=== PATIENT | female | born 1950 | race Caucasian/White ===

== ENCOUNTER → 2017-01-08 | Outpatient (REF) | payer MEDICARE, OTHER | LOC: M SFHCPLAZ 09:05 | PROVIDERS: ATTEND Nurse Practitioner Adult Health | DX: I10 Essential (primary) hypertension (principal); E11.9 Type 2 diabetes mellitus without complications; E78.00 Pure hypercholesterolemia, unspecified; E55.9 Vitamin D deficiency, unspecified; Z53.8 Procedure and treatment not carried out for other reasons ==

== ENCOUNTER → 2017-01-11 | Outpatient (CLI) | payer MEDICARE, OTHER ==
[2017-01-11 13:04] LABS: ALKALINE PHOSPHATASE 114 U/L (45-117); ALT/SGPT 57 U/L (12-78); ANION GAP 9 MEQ/L (8-16); AST/SGOT 41 U/L (15-37); BILIRUBIN,TOTAL 0.5 MG/DL (0.2-1.0); BLOOD UREA NITROGEN 11 MG/DL (7-18); CALCIUM LEVEL 9.3 MG/DL (8.8-10.2); CARBON DIOXIDE LEVEL 28 MEQ/L (21-32); CHLORIDE LEVEL 103 MEQ/L (98-107); CHOLESTEROL LEVEL 215 MG/DL (<200); CREATININE FOR GFR 0.75 MG/DL (0.55-1.02); GLOMERULAR FILTRATION RATE > 60.0 (>45); GLUCOSE, FASTING 100 MG/DL (80-110); POTASSIUM SERUM 4.5 MEQ/L (3.5-5.1); SODIUM LEVEL 140 MEQ/L (136-145); TRIGLYCERIDES LEVEL 85 MG/DL (<150)
[2017-01-11 13:05] LABS: ALBUMIN 3.7 GM/DL (3.2-5.2); ALBUMIN/GLOBULIN RATIO 1.06 (1.00-1.93); TOTAL PROTEIN 7.2 GM/DL (6.4-8.2)
== END ==
LOC: M WUC 10:11
PROVIDERS: ATTEND Nurse Practitioner Adult Health
DX: E11.9 Type 2 diabetes mellitus without complications (principal); E78.00 Pure hypercholesterolemia, unspecified; I10 Essential (primary) hypertension; E55.9 Vitamin D deficiency, unspecified

== ENCOUNTER → 2017-08-10 | Outpatient (CLI) | payer MEDICARE, OTHER ==
[2017-08-10 18:05] LABS: MEAN CORPUSCULAR HEMOGLOBIN 33.9 pg (27.0-33.0); MEAN CORPUSCULAR HGB CONC 33.3 g/dl (32.0-36.5); MEAN CORPUSCULAR VOLUME 101.8 fl (80.0-96.0); PLATELET COUNT, AUTOMATED 223 10^3/uL (150-450); RED CELL DISTRIBUTION WIDTH 11.6 % (11.5-14.5); WHITE BLOOD COUNT 6.7 10^3/uL (4.0-10.0)
[2017-08-10 18:19] LABS: ALBUMIN 3.4 GM/DL (3.2-5.2); ALBUMIN/GLOBULIN RATIO 0.94 (1.00-1.93); ALKALINE PHOSPHATASE 94 U/L (45-117); ALT/SGPT 39 U/L (12-78); ANION GAP 8 MEQ/L (8-16); AST/SGOT 28 U/L (7-37); BILIRUBIN,TOTAL 0.5 MG/DL (0.2-1.0); BLOOD UREA NITROGEN 15 MG/DL (7-18); CALCIUM LEVEL 8.9 MG/DL (8.8-10.2); CARBON DIOXIDE LEVEL 26 MEQ/L (21-32); CHLORIDE LEVEL 105 MEQ/L (98-107); CHOLESTEROL LEVEL 189 MG/DL (<200); CREATININE FOR GFR 0.65 MG/DL (0.55-1.02); GLOMERULAR FILTRATION RATE > 60.0 (>45); GLUCOSE, FASTING 96 MG/DL (80-110); POTASSIUM SERUM 4.2 MEQ/L (3.5-5.1); SODIUM LEVEL 139 MEQ/L (136-145); TRIGLYCERIDES LEVEL 94 MG/DL (<150)
== END ==
LOC: M WUC 10:30
PROVIDERS: ATTEND Nurse Practitioner Adult Health
DX: Z00.00 Encounter for general adult medical examination without abnormal findings (principal); E11.9 Type 2 diabetes mellitus without complications; I10 Essential (primary) hypertension; E55.9 Vitamin D deficiency, unspecified; E78.00 Pure hypercholesterolemia, unspecified

== ENCOUNTER → 2017-08-30 | Outpatient (CLI) | payer MEDICARE, OTHER ==
--- NOTE | 2017-08-30 09:32 | REPMRS ---
Patient History The patient states she had a clinical breast exam in 05/2017. Patient is postmenopausal and has history of other cancer at age 57. Family history of colorectal cancer in maternal uncle. Benign stereotactic core biopsy of the right breast, 2008. Digital Woman Screen Mammo: August 30, 2017 - Exam #: [id number] Bilateral CC and MLO view(s) were taken. Technologist: Allegra Hernandez, Technologist Prior study comparison: July 13, 2016, digital woman screen mammo performed at [facility]. June 24, 2015, digital woman screen mammo performed at [facility]. January 08, 2014, digital woman screen mammo performed at [facility]. FINDINGS: The breast tissue is almost entirely fat. There has been no change in the appearance of the mammogram from the prior studies. There is no interval development of dominant mass, architectural distortion, or clustered microcalcification typical of malignancy. ASSESSMENT: BI-RADS/ACR category 1 mammogram. Negative. Recommendation Routine screening mammogram of both breasts in 1 year (for women over age 40). This mammogram was interpreted with the aid of an FDA-approved computer-aided dectection system. Electronically Signed By: Chris Patel MD 08/30/17 0932
== END ==
LOC: M WHC 08:25
PROVIDERS: ATTEND Nurse Practitioner Adult Health
DX: Z12.31 Encounter for screening mammogram for malignant neoplasm of breast (principal)

== ENCOUNTER → 2018-05-02 | Outpatient (CLI) | payer MEDICARE, OTHER ==
[2018-05-02 13:51] LABS: ESTIMATED AVERAGE GLUCOSE 105 MG/DL (60-110); HEMOGLOBIN A1c 5.3 %
[2018-05-02 13:55] LABS: ALBUMIN 3.6 GM/DL (3.2-5.2); ALBUMIN/GLOBULIN RATIO 0.95 (1.00-1.93); ALKALINE PHOSPHATASE 96 U/L (45-117); ALT/SGPT 143 U/L (12-78); ANION GAP 9 MEQ/L (8-16); AST/SGOT 185 U/L (7-37); BILIRUBIN,TOTAL 0.5 MG/DL (0.2-1.0); BLOOD UREA NITROGEN 16 MG/DL (7-18); CALCIUM LEVEL 8.8 MG/DL (8.8-10.2); CARBON DIOXIDE LEVEL 27 MEQ/L (21-32); CHLORIDE LEVEL 103 MEQ/L (98-107); CHOLESTEROL LEVEL 176 MG/DL (<200); CHOLESTEROL RISK RATIO 2.022 (<5); CREATININE FOR GFR 0.79 MG/DL (0.55-1.30); GLOMERULAR FILTRATION RATE > 60.0 (>45); GLUCOSE, FASTING 96 MG/DL (70-100); HDL CHOLESTEROL 87 MG/DL (>40); LDL CHOLESTEROL 71.8 MG/DL (<100); NON-HDL-C 89 MG/DL; POTASSIUM SERUM 3.9 MEQ/L (3.5-5.1); SODIUM LEVEL 139 MEQ/L (136-145); TOTAL PROTEIN 7.4 GM/DL (6.4-8.2); TRIGLYCERIDES LEVEL 86 MG/DL (<150)
[2018-05-02 14:05] LABS: MALB URINE SIEMENS 47.4 MG/L; MAU/CREAT RATIO 13.6 MCG/MG (0.0-30.0)
== END ==
LOC: M WUC 09:45
DX: E11.9 Type 2 diabetes mellitus without complications (principal); E78.00 Pure hypercholesterolemia, unspecified
CPT/HCPCS: 80053

== ENCOUNTER → 2018-08-12 | Outpatient (REF) | payer MEDICARE, OTHER ==
[2018-08-12 13:37] LABS: ALBUMIN/GLOBULIN RATIO 1.08 (1.00-1.93); ALKALINE PHOSPHATASE 91 U/L (45-117); ALT/SGPT 36 U/L (12-78); ANION GAP 6 MEQ/L (8-16); AST/SGOT 29 U/L (7-37); BILIRUBIN,TOTAL 0.4 MG/DL (0.2-1.0); BLOOD UREA NITROGEN 13 MG/DL (7-18); CALCIUM LEVEL 9.4 MG/DL (8.8-10.2); CARBON DIOXIDE LEVEL 30 MEQ/L (21-32); CHLORIDE LEVEL 102 MEQ/L (98-107); CREATININE FOR GFR 0.68 MG/DL (0.55-1.30); GLOMERULAR FILTRATION RATE > 60.0 (>45); GLUCOSE, FASTING 96 MG/DL (70-100); POTASSIUM SERUM 4.2 MEQ/L (3.5-5.1); SODIUM LEVEL 138 MEQ/L (136-145); TOTAL PROTEIN 7.7 GM/DL (6.4-8.2)
== END ==
LOC: M SFHCPLAZ 10:59
DX: Z00.00 Encounter for general adult medical examination without abnormal findings (principal); K76.0 Fatty (change of) liver, not elsewhere classified; E55.9 Vitamin D deficiency, unspecified; E66.09 Other obesity due to excess calories; Z68.32 Body mass index [BMI] 32.0-32.9, adult
CPT/HCPCS: 80053

== ENCOUNTER → 2018-09-01 | Outpatient (CLI) | payer MEDICARE, OTHER | LOC: M WHC 09:55 | DX: Z12.31 Encounter for screening mammogram for malignant neoplasm of breast (principal); Z78.0 Asymptomatic menopausal state; Z85.828 Personal history of other malignant neoplasm of skin | CPT/HCPCS: 77067 ==

== ENCOUNTER → 2019-07-24 | Outpatient (CLI) | payer MEDICARE, OTHER ==
[2019-07-24 13:08] LABS: ALBUMIN 3.4 GM/DL (3.2-5.2); ALT/SGPT 41 U/L (12-78); BILIRUBIN,TOTAL 0.7 MG/DL (0.2-1.0); BLOOD UREA NITROGEN 13 MG/DL (7-18); CALCIUM LEVEL 9.2 MG/DL (8.8-10.2); CARBON DIOXIDE LEVEL 30 MEQ/L (21-32); CHLORIDE LEVEL 102 MEQ/L (98-107); CHOLESTEROL LEVEL 146 MG/DL (<200); CHOLESTEROL RISK RATIO 2.317 (<5); CREATININE FOR GFR 0.78 MG/DL (0.55-1.30); GLOMERULAR FILTRATION RATE > 60.0 (>39); GLUCOSE, FASTING 91 MG/DL (70-100); HDL CHOLESTEROL 63 MG/DL (>40); LDL CHOLESTEROL 66 MG/DL (<100); NON-HDL-C 83 MG/DL; POTASSIUM SERUM 4.2 MEQ/L (3.5-5.1); SODIUM LEVEL 138 MEQ/L (136-145); TOTAL PROTEIN 7.1 GM/DL (6.4-8.2); TRIGLYCERIDES LEVEL 86 MG/DL (<150)
[2019-07-24 13:09] LABS: TOTAL 25(OH) VITAMIN D 50.4 NG/ML (30.0-100.0)
[2019-07-24 13:36] LABS: MALB URINE SIEMENS 31.4 MG/L; MAU/CREAT RATIO 15.1 MCG/MG (0.0-30.0)
[2019-07-24 13:41] LABS: HEMOGLOBIN A1c 5.1 %
== END ==
LOC: M WUC 08:46
PROVIDERS: ATTEND Nurse Practitioner Adult Health
DX: K76.0 Fatty (change of) liver, not elsewhere classified (principal); Z00.00 Encounter for general adult medical examination without abnormal findings; E11.9 Type 2 diabetes mellitus without complications; E78.00 Pure hypercholesterolemia, unspecified; Z79.899 Other long term (current) drug therapy

== ENCOUNTER → 2019-09-03 | Outpatient (CLI) | payer MEDICARE, OTHER ==
--- NOTE | 2019-09-03 12:30 | REP ---
BILATERAL MAMMOGRAM WITH 3D TOMOSYNTHESIS: No family history of breast cancer. [facility] of breast cancer 4.1%. COMPARISON: 09/01/2018 as well as other prior exams. Metallic clip is again seen in the lateral right breast from a prior benign stereotactic biopsy. Mild scattered fibroglandular tissue is again seen bilaterally with no evidence of mass or architectural distortion. Tiny calcifications are seen in the upper outer quadrant of the right breast. These should be further evaluated with magnification views. IMPRESSION: BIRADS 0: BI-RADS/ACR category 0 mammogram, Incomplete: Need additional imaging evaluation and/or prior mammograms for comparison. ACR 0 incomplete. Tiny calcifications seen in the upper outer quadrant of the right breast. Recommend magnification views to further evaluate. This mammogram was interpreted with the aid of an FDA-approved computer-aided detection system. A. Negative x-ray reports should not delay biopsy if a dominant or clinically suspicious mass is present. B. Four to eight percent of cancers are not identified by x-ray. C. Adenosis and dense breasts may obscure an underlying neoplasm. The patient states that she or he has not had a clinical breast exam in over a year. The patient letter being requested is M0.
== END ==
LOC: M WHC 10:12
PROVIDERS: ATTEND Nurse Practitioner Adult Health
DX: R92.2 Inconclusive mammogram (principal)

== ENCOUNTER → 2019-09-14 | Outpatient (CLI) | payer MEDICARE, OTHER ==
--- NOTE | 2019-09-14 11:48 | REP ---
DIGITAL DIAGNOSTIC UNILATERAL RIGHT BREAST MAMMOGRAPHY WITH CAD: HISTORY: Screening mammography September 03, 2019 was BI-RADS category 0 because of a grouping of fine microcalcifications in the upper outer quadrant on the right. Comparison is also made with prior mammography from September 01, 2018, August 30, 2017. FINDINGS: Magnified focal spot compression CC, true MLO, and MLO views of the right breast are obtained. A loose grouping of predominantly punctate but polymorphic microcalcifications is confirmed in the upper outer quadrant of the right breast. This is not adjacent to a marker clip from previous stereotactic needle biopsy. Several of these calcifications are elongate. These are not apparent on previous mammography. IMPRESSION: BIRADS 4: BI-RADS/ACR category 4 mammogram. Suspicious Abnormality - biopsy should be considered. BI-RADS category 4 suspicious right breast imaging. Stereotactic needle biopsy recommended for microcalcific grouping upper outer quadrant right breast. This mammogram was interpreted with the aid of an FDA-approved computer-aided detection system. The patient states she had a clinical breast exam in over a year. The patient letter being requested is M#[id number]. Electronically Signed by Crescencio Patel MD 09/14/2019 01:47 P
== END ==
LOC: M RAD 10:52
PROVIDERS: ATTEND Nurse Practitioner Adult Health
DX: R92.2 Inconclusive mammogram (principal)

== ENCOUNTER → 2019-10-09 | Outpatient (CLI) | payer MEDICARE, OTHER ==
[~2019-10-09] MED LIST: ASPI81CH33 PO; AZEL0.05 OD; CALCCAP4 PO; CONT1TAB PO; DRIS50003 PO; LIDOCAINE 1% MDV 20ML VIAL As Ordered ONE; LOSA100T8 PO; LOVA1CAP17 PO; METF-414 PO; NEXI40CA PO; PRAV1TAB39 PO
[2019-10-09 11:10] VITALS: BP 197/97
--- NOTE | 2019-10-09 11:54 | REP ---
DIGITAL DIAGNOSTIC UNILATERAL RIGHT BREAST MAMMOGRAPHY: Two views with CAD: HISTORY: Marker clip placement views. The patient is status post stereotactic needle biopsy for microcalcifications. Comparison mammography September 14, 2019. FINDINGS: The marker clip is seen to be in good position at the level of the microcalcifications. A previously placed marker clip is noted elsewhere in the right upper outer quadrant. IMPRESSION: Marker clip in good position. Electronically Signed by Crescencio Patel MD 10/10/2019 05:13 A
--- NOTE | 2019-10-09 12:44 | REP ---
SPECIMEN RADIOGRAPHY: Right breast. HISTORY: Stereotactic needle biopsy for microcalcifications upper outer quadrant right breast. FINDINGS: Specimen radiography demonstrates microcalcifications from the target grouping in specimen tube #5 and #2. IMPRESSION: There are microcalcifications in the biopsy specimen. Electronically Signed by Crescencio Patel MD 10/10/2019 05:15 A
--- NOTE | 2019-10-10 05:17 | REP ---
STEREOTACTIC RIGHT BREAST BIOPSY The procedure was performed under the direct supervision of Dr. Patel The patient has a history of a loose grouping of predominantly punctate of polymorphic microcalcifications in the upper outer quadrant of the right breast seen on a previous mammogram dated 09/14/2019. The risks and benefits of the procedure were explained to the patient and informed consent was obtained. A annual caudal approach was utilized. The calcifications were localized using stereotactic mammographic guidance. 1% Xylocaine was used as a local anesthetic. An 8 gauge, suction assisted Mammotome needle was inserted and 6 core biopsy samples were obtained. Specimen radiograph demonstrates the presence of calcifications to be within the specimen. A marker clip was placed at the biopsy site. The patient tolerated the procedure well and there were no immediate complications. After the appropriate amount of monitored convalescence, the patient was discharged from the department. Electronically Signed by KIMO Vieira 10/09/2019 06:15 P Electronically Signed by Crescencio Patel MD 10/10/2019 05:08 A
== END ==
LOC: M IRPRO 09:49
PROVIDERS: ATTEND Surgery
DX: D05.11 Intraductal carcinoma in situ of right breast (principal)

== ENCOUNTER → 2019-10-20 | Outpatient (CLI) | payer MEDICARE, OTHER ==
[~2019-10-20] MED LIST changes: -LIDOCAINE 1% MDV 20ML VIAL As Ordered ONE
[2019-10-20 12:56] LABS: HEMATOCRIT 41.1 % (36.0-47.0); HEMOGLOBIN 12.9 g/dl (12.0-15.5); MEAN CORPUSCULAR HEMOGLOBIN 32.6 pg (27.0-33.0); MEAN CORPUSCULAR HGB CONC 31.4 g/dl (32.0-36.5); MEAN CORPUSCULAR VOLUME 103.8 fl (80.0-96.0); PLATELET COUNT, AUTOMATED 221 10^3/uL (150-450); RED BLOOD COUNT 3.96 10^6/uL (4.00-5.40); WHITE BLOOD COUNT 6.7 10^3/uL (4.0-10.0)
[2019-10-20 13:18] LABS: ALBUMIN 3.7 GM/DL (3.2-5.2); ALT/SGPT 42 U/L (12-78); BILIRUBIN,TOTAL 0.5 MG/DL (0.2-1.0); BLOOD UREA NITROGEN 13 MG/DL (7-18); CALCIUM LEVEL 9.2 MG/DL (8.8-10.2); CARBON DIOXIDE LEVEL 31 MEQ/L (21-32); CHLORIDE LEVEL 104 MEQ/L (98-107); CREATININE FOR GFR 0.71 MG/DL (0.55-1.30); GLOMERULAR FILTRATION RATE > 60.0 (>39); GLUCOSE, FASTING 96 MG/DL (70-100); POTASSIUM SERUM 4.6 MEQ/L (3.5-5.1); SODIUM LEVEL 139 MEQ/L (136-145)
== END ==
LOC: M WUC 09:32
PROVIDERS: ATTEND Surgery
DX: D05.11 Intraductal carcinoma in situ of right breast (principal)

== ENCOUNTER → 2019-10-22 | Outpatient (CLI) | payer MEDICARE, OTHER ==
[~2019-10-22] MED LIST changes: +PROHANCE 279.3MG/ML 15ML VIAL (A9576) As Ordered ONE
--- NOTE | 2019-10-22 19:11 | REP ---
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 The patient is status post stereotactic needle biopsy right breast for microcalcifications on October 09, 2019. Technique: Three Candace MRI imaging was performed with a dedicated breast coil. Axial, coronal, and sagittal T1 and T2-weighted scans were obtained with and without fat saturation in the usual fashion. The study includes dynamically acquired post gadolinium enhanced imaging subtraction imaging. Maximal intensity projection and multiplanar re-formation imaging is included as well. The study was interpreted with the aid of [employer], an FDA approved computer-aided detection (CAD) software program, on a dedicated breast MRI work station. The gadolinium enhancement dose is 15 ml of intravenous ProHance. Findings: Breast parenchyma is predominately fat replaced. There is a hydro vilma needle biopsy marker clip in the upper outer quadrant of the right breast from recent biopsy. There is no evidence of visible hematoma. There is a second needle biopsy marker clip artifact in the inferior and lateral quadrant of the right breast from previously performed needle biopsy procedure. There is no evidence of axillary lymphadenopathy or significant breast cystic change on either side. There is only minimal background parenchymal enhancement. There is no abnormal focus of enhancement and washout in either breast. Adjacent to the recently placed hydro vilma needle biopsy and marker, there is a branching pattern of subtle ductal type enhancement which measures 20 mm in greatest dimension. The hide remark device is along the medial edge of this ductal enhancement pattern. There is a tiny nodular focus of subtle enhancement 1.6 cm anterior and slightly lateral to the hydro vilma clip. No other suspicious contrast enhancement pattern is appreciated. Subtraction images show this faint area of ductal enhancement adjacent to the hide remark left in the right breast. Study is otherwise unremarkable. Impression: BIRADS category six known right breast malignancy. No contralateral or distant ipsilateral suspicious focus is seen. There is a subtle ductal pattern of enhancement adjacent to the current biopsy marker clip in the upper outer quadrant on the right. BIRADS 6: BI-RADS/ACR category 6 mammogram. Known Biopsy Proven Malignancy. Electronically Signed by Crescencio Patel MD 10/22/2019 07:44 P
== END ==
LOC: M RAD 16:09
PROVIDERS: ATTEND Surgery
DX: D05.11 Intraductal carcinoma in situ of right breast (principal)
CPT/HCPCS: A9576; C8908

== ENCOUNTER → 2019-11-03 | Outpatient (CLI) | payer MEDICARE, OTHER ==
[~2019-11-03] MED LIST changes: +BUPR50TA PO; +MAGN400C2 PO; -PROHANCE 279.3MG/ML 15ML VIAL (A9576) As Ordered ONE; +ULTR50TA8 PO; +VITA50005 PO
--- NOTE | 2019-11-03 15:07 | REP ---
PA and lateral chest: Comparison is 10/25/2019, 09/02. The lung stiles are clear. The cardiac size is normal. The rocio, mediastinum, and skeletal structures are unremarkable. Impression: Negative PA and lateral chest. There is no interval change. Electronically Signed by Joe Quinn MD 11/03/2019 02:59 P
== END ==
LOC: M WUC 14:29
PROVIDERS: ATTEND Family Medicine
DX: Z01.818 Encounter for other preprocedural examination (principal); D05.11 Intraductal carcinoma in situ of right breast
CPT/HCPCS: 71046; 93005; G0463

== ENCOUNTER 2019-11-10 06:08 | Day surgery (SDC) | payer MEDICARE, OTHER ==
[~2019-11-10] VITALS: Ht 157.5 cm; Wt 78.9 kg
[~2019-11-10 06:08] MED LIST changes: -BUPR50TA PO; +LIDOCAINE 1% MDV 20ML VIAL SQ PRN; +LR 1,000 ML IV ONE; -ULTR50TA8 PO; -VITA50005 PO; +ceFAZolin SOD 2 GM in IV 1 EA IV ONE
[2019-11-10] MEDS ORDERED: BUPIVACAINE HCL 0.25% 30 ML VIAL As Ordered ONE (06:54)
[2019-11-10] MEDS ORDERED: LIDOCAINE 1% SDV INJ 30 ML VIAL As Ordered ONE (06:54)
[2019-11-10] MEDS ORDERED: propofoL 200 MG/20 ML VIAL As Ordered ONE (07:12)
[2019-11-10] MEDS ORDERED: LIDOCAINE 2% INJ 100 MG/5 ML SDV (FOR ANES.) As Ordered ONE (07:12)
[2019-11-10] MEDS ORDERED: ONDANSETRON 4MG/2ML VIAL (J2405) As Ordered ONE (07:13)
[2019-11-10] MEDS ORDERED: dexameTHASONE 4 MG/ML 1ML VIAL (J1100) As Ordered ONE (07:13)
[2019-11-10] MEDS ORDERED: fentaNYL 250 MCG/5 ML INJECTION (J3010) As Ordered ONE (07:14)
[2019-11-10] MEDS ORDERED: MIDAZOLAM INJ 2 MG/2 ML VIAL (J2250) As Ordered ONE (07:14)
[2019-11-10] MEDS ORDERED: HEPARIN SOD (PORCINE) 5000 UNITS/ML VIAL (J1644 PER 1000UNITS) SQ ONE (07:15)
[2019-11-10] MEDS ORDERED: SCOPOLAMINE 1MG TRANSDERMAL PATCH As Ordered ONE (07:30)
[2019-11-10] MEDS ORDERED: SCOPOLAMINE 1MG TRANSDERMAL PATCH TOP ONE (07:45)
[2019-11-10] MEDS ORDERED: KETAMINE HCL 200 MG/20 ML VIAL As Ordered ONE (07:53)
[2019-11-10] MEDS ORDERED: ACETAMINOPHEN 1000MG 100ML IV BTL (OFIRMEV) (J0131 PER 10MG) As Ordered ONE (07:54)
[2019-11-10] MEDS ORDERED: KETOROLAC 60 MG/2 ML VIAL (J1885) As Ordered ONE (07:59)
[2019-11-10] MEDS ORDERED: ePHEDrine SULFATE 25 MG/5 ML(5MG/ML) SYRINGE As Ordered ONE (09:15)
[2019-11-10] MEDS ORDERED: ULTR50TA8 PO (10:32)
--- NOTE | 2019-11-10 10:41 | REP ---
SPECIMEN RADIOGRAPHY RIGHT BREAST. HISTORY: Excisional lumpectomy for microcalcifications and ductal carcinoma in situ. Comparison mammography October 09, 2019. FINDINGS: A Kopans needle wire localizer device seen centrally in the specimen immediately adjacent to a HydroMARK needle biopsy marker clip. Along what is described as the posterior margin of the specimen, there are microcalcifications associated with the originally biopsied microcalcific grouping. These extend near the lateral margin of the specimen. Findings were discussed by telephone with the attending surgeon in the operating room. Electronically Signed by Crescencio Patel MD 11/10/2019 07:56 P
[2019-11-10] MEDS ORDERED: ONDANSETRON 4MG/2ML VIAL (J2405) IV PRN (10:45)
[2019-11-10] MEDS ORDERED: LR 1,000 ML IV SCH (10:45)
[2019-11-10] MEDS ORDERED: fentaNYL 100 MCG/2 ML INJECTION (J3010) IV PRN (10:45)
[2019-11-10] MEDS ORDERED: oxyCODONE 5MG TAB PO PRN (10:45)
[2019-11-10] MEDS ORDERED: BUPR50TA PO (11:41)
[2019-11-10 11:50] VITALS: BP 182/77
--- NOTE | 2019-11-10 12:06 | REP ---
Ultrasound guidance: History: Right breast ductal carcinoma in situ. Findings: Sonographic guidance is provided to Dr. Mcclelland who performed ultrasound-guided needle localization procedure. Electronically Signed by Crescencio Patel MD 11/10/2019 07:58 P
--- NOTE | 2019-11-10 20:39 | ROOPDOC ---
[facility] Report Of Operation Report of Operation DATE OF PROCEDURE: 11/10/19 PREPROCEDURE DIAGNOSES: right breast DCIS POSTPROCEDURE DIAGNOSES: right breast DCIS PROCEDURE: right breast lumpectomy with intraop guide wire placement SURGEON: Susana Villareal HEATING ELEMENT BUILDER: ANESTHESIA: general ESTIMATED BLOOD LOSS: Approximately 5 mL. COMPLICATIONS: none REMARKS: wire, clip and calcifications seen on the X ray of the specimen DESCRIPTION OF PROCEDURE: INDICATIONS: Ms. Whitley is a 69 year old woman who was found to have abnormal calcifications in the right breast on the screening mammogram. She had diagnostic imaging done which confirmed the presence of the calcifications. Right breast stereotactic biopsy was done and pathology came back as ER positive DCIS. Patient underwent MRI of the breast to evaluate extent of the disease which was limited to the area of calcifications. There were no abnormalities found in the left breast. Ms. Whitley opted for breast conservative surgery. Since her disease is clinically limited to the ducts, no sentinel lymph node biopsy was recommended at this t [facility]. She was medically cleared for surgery by her primary care doctor. Risks and possible complications of surgical procedure including bleeding, infection and injury to surrounding structures were explained to the patient and she wished to proceed. Consent was signed. My initials were placed on the operative site (right). Since patient has an active diagnosis of cancer, subcutaneous injection of 5000 units of heparin was done in Preop. DETAILS: Patient was taken to the operating room and placed on the operating room table. A sign in was called stating patients name, date of and the procedure to be done. Preoperative antibiotics were infused. Smooth induction of general anesthesia was done. Patients hands were extended on arm rests. Care was taken not to over extend the arms. Procedure was started with right breast intraop wire localization. Appropriate time out was done and patients name, date of , and the procedure to be done were confirmed. Right breast was cleaned by me. Intraoperative ultrasound was used to confirm location of the Hydromark clip. Location of the clip was marked on the skin as well. 21 G Kopans Breast Lesion Localization Needle was used to place 25 cm wire on the medial aspect of the Hydromark clip. The wire was advanced 1 cm posterior to the clip location. The images were captured confirming adequate placement of the localizing wire. Next, right breast was prepped and draped in the usual fashion. Second time out was done and patients name, date of , and the procedure to be done were confirmed. Local anesthetic using 1% lidocaine and 0.25 % Marcaine 50/50 mix was injected at the right periareolar area. An incision was made with scalpel number 15 at the superolateral aspect of the areola. The localizing wire was pulled into the incision. Dissection was carried along the medial aspect of the wire until the level of the clip location was identified by the use of intraoperative ultrasound probe. Dissection was carried posteriorly until the tip of the wire was palpated. Lateral dissection was carried along the dermal plane. Lumpectomy specimen was resected and the margins were marked with the surgical inking kit. Specimen was positioned on the grid and placed in [facility]. The image revealed one wire, one clip and calcifications. At this time radiology department was called to aid with evaluation of excised specimen. Dr Patel states that the lumpectomy looks good. Some calcifications were seen close to lateral aspect of the specimen. The specimen was labeled with patients name and right breast lumpectomy and sent to pathology. At this point six additional specimen margins were taken: deep, inferior, superior, medial, lateral and anterior. All new margins, defined as margin farthest away from lumpectomy cavity, were marked with black ink. Each margin was sent as a separate specimen with appropriate labeling. Adequate hemostasis w as assured. Additional local anesthetic was injected into surrounding tissues. Clips were placed to vilma the cavity. space was approximated with 3-0 Vicryl. The dermis was closed with 3-0 Monocryl and skin was closed with 4-0 Monocryl. Steri strips were placed over the incision. Instrument and sponge count was correct. Patient emerged from the anesthesia without any problems. Fluffs were placed over the operative site and patients chest was wrapped snuggly in the ROSALES wrap. Patient tolerated procedure well and was taken to recovery unit in stable condition. SUSANA VILLAREAL DO Nov 10, 2019 20:39
== END 2019-11-10 12:10 | disposition home or self-care (01) ==
LOC: M SDC 06:08
PROVIDERS: ATTEND Surgery
DX: D05.11 Intraductal carcinoma in situ of right breast (principal); K21.9 Gastro-esophageal reflux disease without esophagitis; I10 Essential (primary) hypertension; E11.9 Type 2 diabetes mellitus without complications; E78.5 Hyperlipidemia, unspecified; F41.9 Anxiety disorder, unspecified; K76.0 Fatty (change of) liver, not elsewhere classified; Z79.82 Long term (current) use of aspirin; Z79.84 Long term (current) use of oral hypoglycemic drugs; Z79.899 Other long term (current) drug therapy
CPT/HCPCS: 19125; 76098; 76942; 76998; 88305; 88307; J0131; J0690; J1100; J1644; J2250; J2405; J3010

== ENCOUNTER 2019-11-19 07:08 | Day surgery (SDC) | payer MEDICARE, OTHER ==
[~2019-11-19] VITALS: Ht 157.5 cm; Wt 78.9 kg
[~2019-11-19 07:08] MED LIST changes: +BUPR50TA PO; -LIDOCAINE 1% MDV 20ML VIAL SQ PRN; +ULTR50TA8 PO; +VITA50005 PO
[2019-11-19] MEDS ORDERED: HEPARIN SOD (PORCINE) 5000 UNITS/ML VIAL (J1644 PER 1000UNITS) SQ ONE (08:00)
[2019-11-19] MEDS ORDERED: dexameTHASONE 4 MG/ML 1ML VIAL (J1100) As Ordered ONE (08:24)
[2019-11-19] MEDS ORDERED: KETOROLAC 60 MG/2 ML VIAL (J1885) As Ordered ONE (08:24)
[2019-11-19] MEDS ORDERED: ONDANSETRON 4MG/2ML VIAL (J2405) As Ordered ONE (08:24)
[2019-11-19] MEDS ORDERED: propofoL 200 MG/20 ML VIAL As Ordered ONE (08:24)
[2019-11-19] MEDS ORDERED: LIDOCAINE 2% INJ 100 MG/5 ML SDV (FOR ANES.) As Ordered ONE (08:24)
[2019-11-19] MEDS ORDERED: fentaNYL 100 MCG/2 ML INJECTION (J3010) As Ordered ONE (08:24)
[2019-11-19] MEDS ORDERED: MIDAZOLAM INJ 2 MG/2 ML VIAL (J2250) As Ordered ONE (08:24)
[2019-11-19] MEDS ORDERED: SCOPOLAMINE 1MG TRANSDERMAL PATCH As Ordered ONE (09:18)
[2019-11-19] MEDS ORDERED: SCOPOLAMINE 1MG TRANSDERMAL PATCH TOP ONE (09:30)
[2019-11-19] MEDS ORDERED: BUPIVACAINE HCL 0.25% 30 ML VIAL As Ordered ONE (09:33)
[2019-11-19] MEDS ORDERED: LIDOCAINE 1% SDV INJ 30 ML VIAL As Ordered ONE (09:33)
[2019-11-19] MEDS ORDERED: ACETAMINOPHEN 1000MG 100ML IV BTL (OFIRMEV) (J0131 PER 10MG) As Ordered ONE (10:01)
[2019-11-19] MEDS ORDERED: HYDROmorphone HCL 2 MG/ML 1ML VIAL (J1170) As Ordered ONE (10:07)
[2019-11-19] MEDS ORDERED: ONDANSETRON 4MG/2ML VIAL (J2405) IV PRN (11:30)
[2019-11-19] MEDS ORDERED: PERCOCET 5MG/325MG TAB PO PRN (11:30)
[2019-11-19] MEDS ORDERED: METOCLOPRAMIDE INJ 10MG/2ML VIAL (J2765) IV PRN (11:30)
[2019-11-19] MEDS ORDERED: fentaNYL 100 MCG/2 ML INJECTION (J3010) IV PRN (11:30)
[2019-11-19] MEDS ORDERED: LR 1,000 ML IV SCH (11:30)
[2019-11-19] MEDS ORDERED: BUPR50TA PO (11:40)
--- NOTE | 2019-11-19 13:14 | REP ---
Specimen radiography: Two views. History: No current history is available. Previous biopsies performed right breast. Comparison MRI study October 22, 2019 showed an abnormality in the right breast. Findings: Two specimen radiographs are obtained. There is a metallic clip centrally located within the specimen on these two views. There is one microcalcification visible on the edge of the specimen and one of the views. No other microcalcifications are visible. No soft tissue nodule is seen. Electronically Signed by Crescencio Patel MD 11/19/2019 01:06 P
[2019-11-19 13:15] VITALS: BP 168/80
--- NOTE | 2019-11-20 06:26 | ROOPDOC ---
[facility] Report Of Operation Report of Operation DATE OF PROCEDURE: 11/20/19 PREPROCEDURE DIAGNOSES: Right DCIS POSTPROCEDURE DIAGNOSES: Right DCIS PROCEDURE: right breast lumpectomy with excision of the margins SURGEON: Susana Villareal REPORTER: ANESTHESIA: general ESTIMATED BLOOD LOSS: Approximately 5 mL. COMPLICATIONS: none. REMARKS: one single cals seen in the lateral margin. previously placed cavity marking clips are present in the middle of specimens. DESCRIPTION OF PROCEDURE: INDICATIONS: Ms. Whitley is a 69 year old woman who was found to have abnormal calcifications in the right breast on the screening mammogram. She had diagnostic imaging done which confirmed the presence of the calcifications. Right breast stereotactic biopsy was done and pathology came back as ER positive DCIS. Patient underwent MRI of the breast to evaluate extent of the disease which was limited to the area of calcifications. There were no abnormalities found in the left breast. Ms. Whitley opted for breast conservative surgery. Since her disease is clinically limited to the ducts, no sentinel lymph node biopsy was recommended at this time. She was medically cleared for surgery by her primary care doctor. She underwent Right breast lumpectomy with intraop guide wire placement on 11/10/2019. Six additional margins were taken at the time of surgery beside the lumpectomy. No sentinel lymph nodes were tested as preoperatively patient has a disease limited to DCIS. Final pathology report stated that superior and lateral margins were positive for DCIS. All the additional margins were clear however lateral margin was less than 2 mm. Per ASBrS recommendation all the margins on DCIS without invasive component should be equal or more than 2 mm. I discussed that with the patient and she agreed to proceed with superior and lateral margin resection. Risks and possible complications of surgical procedure including bleeding, infection and injury to surrounding structures were explained to the patient and she wished to proceed. Consent was signed. My initials were placed on the operative site (right). Since patient has an active diagnosis of cancer, subcutaneous injection of 5000 units of heparin was done in Preop. DETAILS: Patient was taken to the operating room and placed on the operating room table. A sign in was called stating patients name, date of and the procedure to be done. Preoperative antibiotics were infused. Smooth induction of general anesthesia was done. Patients hands were extended on arm rests. Care was taken not to over extend the arms. Right breast was prepped and draped in the usual fashion. Appropriate time out was done and patients name, date of , and the procedure to be done were confirmed. Local anesthetic using 1% lidocaine and 0.25 % Marcaine 50/50 mix was injected at the site of previous scar. The incision was opened with the scalpel and seroma was evacuated at this time. Old lumpectomy cavity was evaluated. Lateral margin of the lumpectomy cavity was identified and excised. The excision was carried all the way to dermis. The specimen was called right lateral margin. The true margin was marked with black ink. Next, superior margin was identified and excised. The specimen was called right superior margin. The true margin was marked with black ink. Accu[employer] imaging system was used to take a picture of the specimen to assess for any remaining calcifications. One single calcification was noted in the lateral margin. Previously placed cavity marking clips were seen in the middle of each specimen. Specimens were placed in formaldehyde and sent to pathology for evaluation. Right breast cavity was irrigated thoroughly and hemostasis was assured. New marking clips were placed in the new superior margin. The deep layers were approximated with 3-0 Vicryl stitch to obliterate the space and to decrease possible breast deformity formation. The dermis was closed with 3-0 Monocryl and skin was closed with 4-0 Monocryl. Steri Strips were placed over the incision. All sponge and instrument counts were correct. Patient emerged from the anesthesia without any problems. Fluffs were placed over the operating site and patients chest was wrapped snuggly in the ROSALES wrap. Patient tolerated procedure well and was taken to recovery unit in stable condition. SUSANA VILLAREAL DO Nov 20, 2019 06:26
== END 2019-11-19 13:20 | disposition home or self-care (01) ==
LOC: M SDC 07:08
PROVIDERS: ATTEND Surgery
DX: D05.11 Intraductal carcinoma in situ of right breast (principal); E11.9 Type 2 diabetes mellitus without complications; K21.9 Gastro-esophageal reflux disease without esophagitis; E78.00 Pure hypercholesterolemia, unspecified; I10 Essential (primary) hypertension; E55.9 Vitamin D deficiency, unspecified; Z86.59 Personal history of other mental and behavioral disorders; Z79.899 Other long term (current) drug therapy; Z79.84 Long term (current) use of oral hypoglycemic drugs; Z79.82 Long term (current) use of aspirin
CPT/HCPCS: 19301; 76098; 88305; J0131; J0690; J1100; J1170; J1644; J1885; J2250; J2405; J3010

== ENCOUNTER → 2020-05-26 | Outpatient (CLI) | payer MEDICARE, OTHER ==
[~2020-05-26] MED LIST changes: +BUPR-69 PO; -BUPR50TA PO; +EXEM25TA PO; -LR 1,000 ML IV ONE; +TAMO20TA8 PO; -ceFAZolin SOD 2 GM in IV 1 EA IV ONE
--- NOTE | 2020-06-27 16:57 | REP ---
DIGITAL DIAGNOSTIC UNILATERAL LEFT BREAST MAMMOGRAPHY WITH CAD AND FOCUSED LEFT BREAST SONOGRAPHY HISTORY: Palpable abnormality in the left breast on clinician breast exam. Contralateral diagnosis of breast cancer. COMPARISON: Mammography 09/03/2019. FINDINGS: The skin marker is affixed to the skin at the site of the palpable lump in the left medial breast. Magnified focal spot compression CC, true ML, and MLO views show homogeneous fat replaced breast parenchyma texture in the region of the palpable lump. No neodensity, architectural distortion, worrisome skin change, or microcalcification is seen. SONOGRAPHIC FINDINGS: Scanning of the left breast in the area of the palpable lump at approximately 11 o'clock medially shows homogeneous background echotexture. No cyst, mass, or acoustic shadowing is seen. IMPRESSION: BI-RADS Category 1 negative left breast imaging. Clinical follow-up is advised. BIRADS 1: BI-RADS/ACR category 1 mammogram. Negative mammogram. This mammogram was interpreted with the assistance of an FDA approved computer- aided detection system. Patient letter is M2. MARITZA
== END ==
LOC: M WHC 12:58
PROVIDERS: ATTEND Surgery
DX: R92.2 Inconclusive mammogram (principal)
CPT/HCPCS: 76642; 77065; G0279

== ENCOUNTER → 2020-06-10 | Outpatient (CLI) | payer MEDICARE, OTHER ==
[2020-06-10 14:46] LABS: HEMOGLOBIN A1c 5.3 %
[2020-06-10 15:19] LABS: ALBUMIN 3.6 GM/DL (3.2-5.2); ALT/SGPT 47 U/L (12-78); BILIRUBIN,TOTAL 0.6 MG/DL (0.2-1.0); BLOOD UREA NITROGEN 12 MG/DL (7-18); CALCIUM LEVEL 9.3 MG/DL (8.8-10.2); CARBON DIOXIDE LEVEL 29 MEQ/L (21-32); CHLORIDE LEVEL 103 MEQ/L (98-107); CHOLESTEROL LEVEL 171 MG/DL (<200); CHOLESTEROL RISK RATIO 1.676 (<5); CREATININE FOR GFR 0.66 MG/DL (0.55-1.30); GLOMERULAR FILTRATION RATE > 60.0 (>39); GLUCOSE, FASTING 87 MG/DL (70-100); HDL CHOLESTEROL 102 MG/DL (>40); LDL CHOLESTEROL 53 MG/DL (<100); NON-HDL-C 69 MG/DL; POTASSIUM SERUM 4.2 MEQ/L (3.5-5.1); SODIUM LEVEL 138 MEQ/L (136-145); TOTAL PROTEIN 7.3 GM/DL (6.4-8.2); TRIGLYCERIDES LEVEL 80 MG/DL (<150)
== END ==
LOC: M WUC 09:24
PROVIDERS: ATTEND Physician Assistant
DX: E11.9 Type 2 diabetes mellitus without complications (principal); E78.2 Mixed hyperlipidemia; I10 Essential (primary) hypertension; E55.9 Vitamin D deficiency, unspecified; Z79.899 Other long term (current) drug therapy

== ENCOUNTER → 2020-09-05 | Outpatient (CLI) | payer MEDICARE, OTHER ==
--- NOTE | 2020-09-05 09:45 | REPMRS ---
Patient History Family history of colorectal cancer in maternal uncle. Radio exam Breast Specimen of the right breast, November 19, 2019. Malignant radio exam breast specimen of the right breast, November 10, 2019. Malignant radio exam breast specimen of the right breast, October 09, 2019. Stereotatic Loc for ea Lesion of the right breast, October 09, 2019. Benign stereotactic core biopsy of the right breast, 2008. Taking tamoxifen for 8 months. Diagnostic Bilateral Mammo: September 05, 2020 - Exam #: [id number] Bilateral CC and MLO view(s) were taken. Technologist: Sara Davis, Technologist Prior study comparison: May 26, 2020, left breast diagnostic unilateral mammo performed at [facility]. September 14, 2019, right breast digital mammo diagnostic unilateral, performed at [facility]. September 03, 2019, bilateral digital woman screen mammo performed at [facility]. September 01, 2018, bilateral digital woman screen mammo performed at [facility]. FINDINGS: There are scattered fibroglandular densities. The Volpara volumetric breast density category is:B. The patient is status post excisional biopsy for ductal carcinoma in situ April of 2020. This is the 1st post treatment mammogram. There is an area of a contour deformity and post biopsy fibrosis in the upper outer quadrant on the right with scattered surgical clips in the field consistent with postsurgical change. There has been no other change in the appearance of the mammogram from the prior studies. There is a mild amount of scattered fibroglandular density which is fairly symmetric. There is no interval development of dominant mass, architectural distortion, or grouped microcalcification suggestive of malignancy. 3-D tomosynthesis shows no additional findings. Assessment: BI-RADS/ACR Category 3 mammogram. Probably Benign Findings. Recommendation Routine screening mammogram of the right breast in 6 months (for women over age 40). This mammogram was interpreted with the aid of an FDA-approved computer-aided dectection system. Electronically Signed By: Chris Patel MD 09/05/20 0917
== END ==
LOC: M WHC 08:56
PROVIDERS: ATTEND Surgery
DX: Z12.31 Encounter for screening mammogram for malignant neoplasm of breast (principal); Z85.3 Personal history of malignant neoplasm of breast
CPT/HCPCS: 77066; G0279

== ENCOUNTER → 2021-02-15 | Outpatient (CLI) | payer MEDICARE, OTHER | LOC: M CARPUL 13:43 | PROVIDERS: ATTEND Nurse Practitioner Adult Health | DX: I48.91 Unspecified atrial fibrillation (principal) ==

== ENCOUNTER → 2021-04-10 | Outpatient (CLI) | payer MEDICARE, OTHER ==
[~2021-04-10] MED LIST changes: +ERGO500029 PO; +GNP250TA9 PO; +LOSA100T5 PO; +METO1TAB32 PO; +PRAV10TA4 PO; -VITA50005 PO; +XARE20TA PO
--- NOTE | 2021-04-10 09:42 | REP ---
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 COMPARISON: The latest prior postsurgical examination of 09/05/2020 TECHNIQUE: Digital mammography was obtained right breast CC and MLO projections in both 2D and 3D modalities. By history, the patient has no complaints of a palpable breast abnormality or other significant breast complaints.. FINDINGS: The right breast is unchanged in size and shape. There are no chris soft tissue densities are chris areas of internal architectural distortion. Stable postsurgical and postprocedural changes seen in the right breast upper outer quadrant. There are no chris suspicious calcifications. Stable benign calcifications are again seen. IMPRESSION: BIRADS/ACR category 2 negative mammogram. Stable postprocedural changes are seen in the right breast. There is no evidence of malignant alteration. This mammogram was interpreted with the aid of an FDA-approved computer-aided detection system. The patient states she had a clinical breast exam in February of 2021. The patient letter being requested is M1. RECOMMENDATION: Repeat screening mammography recommended 1 year (for women over 40). <Electronically signed by Marcelino Vines > 04/10/21 [id number]
== END ==
LOC: M WHC 08:38
PROVIDERS: ATTEND Surgery
DX: D05.11 Intraductal carcinoma in situ of right breast (principal); R92.8 Other abnormal and inconclusive findings on diagnostic imaging of breast
CPT/HCPCS: 77065; G0279

== ENCOUNTER → 2021-07-17 | Outpatient (CLI) | payer MEDICARE, OTHER ==
[2021-07-17 10:26] LABS: HEMOGLOBIN 13.5 g/dl (12.0-15.5); MEAN CORPUSCULAR HEMOGLOBIN 32.9 pg (27.0-33.0); MEAN CORPUSCULAR HGB CONC 32.9 g/dl (32.0-36.5); PLATELET COUNT, AUTOMATED 246 10^3/uL (150-450); WHITE BLOOD COUNT 8.9 10^3/uL (4.0-10.0)
[2021-07-17 11:05] LABS: ALBUMIN 3.3 GM/DL (3.2-5.2); ALT/SGPT 36 U/L (12-78); BILIRUBIN,TOTAL 0.5 MG/DL (0.2-1.0); BLOOD UREA NITROGEN 11 MG/DL (7-18); CARBON DIOXIDE LEVEL 31 MEQ/L (21-32); CHLORIDE LEVEL 102 MEQ/L (98-107); CHOLESTEROL LEVEL 168 MG/DL (<200); CHOLESTEROL RISK RATIO 2.709 (<5); CREATININE FOR GFR 0.84 MG/DL (0.55-1.30); GLOMERULAR FILTRATION RATE > 60.0 (>39); GLUCOSE, FASTING 118 MG/DL (70-100); HDL CHOLESTEROL 62 MG/DL (>40); LDL CHOLESTEROL 79 MG/DL (<100); NON-HDL-C 106 MG/DL; POTASSIUM SERUM 3.7 MEQ/L (3.5-5.1); SODIUM LEVEL 138 MEQ/L (136-145); TOTAL PROTEIN 7.1 GM/DL (6.4-8.2); TRIGLYCERIDES LEVEL 134 MG/DL (<150)
[2021-07-17 11:51] LABS: HEMOGLOBIN A1c 5.4 %
== END ==
LOC: M WUC 08:39
PROVIDERS: ATTEND Nurse Practitioner Adult Health
DX: I48.91 Unspecified atrial fibrillation (principal); E78.2 Mixed hyperlipidemia; E11.9 Type 2 diabetes mellitus without complications; I10 Essential (primary) hypertension; E55.9 Vitamin D deficiency, unspecified; Z79.899 Other long term (current) drug therapy

== ENCOUNTER → 2021-09-06 | Outpatient (CLI) | payer MEDICARE, OTHER ==
--- NOTE | 2021-09-06 09:53 | REPMRS ---
Patient History The patient states she had a clinical breast exam in 2020. Patient is postmenopausal, has history of cancer in the right breast at age 69, and has history of other cancer at age 57. Family history of colorectal cancer in maternal uncle. Radio exam Breast Specimen of the right breast, November 19, 2019. Malignant radio exam breast specimen of the right breast, November 10, 2019. Malignant radio exam breast specimen of the right breast, October 09, 2019. Stereotatic Loc for ea Lesion of the right breast, October 09, 2019. Benign stereotactic core biopsy of the right breast, 2008. Taking tamoxifen for 1 year 8 months. Patient states no breast complaints today. Patient has signed MRS History Sheet. Diagnostic Bilateral Mammo: September 06, 2021 - Exam #: [id number] Bilateral CC and MLO view(s) were taken. Technologist: Alise Silva [employer] Prior study comparison: April 10, 2021, right breast diagnostic unilateral mammo performed at [facility]. September 05, 2020, diagnostic bilateral mammo performed at [facility]. FINDINGS: The breast tissue is almost entirely fat. Screening. This patient?s lifetime risk for the development of invasive breast cancer can?t be calculated due to her history of in situ or invasive breast cancer. Digital screening (2D) mammography was performed bilaterally. Additionally, breast tomosynthesis (3D mammography) was performed bilaterally in the CC and MLO projections. Today's exam was compared to the prior exam/exams. By history, the patient has no complaints of a palpable breast abnormality or other significant breast complaints. The Volpara volumetric breast density category is A, the breasts are almost entirely fatty. The patient is status post lumpectomy due to breast carcinoma, on the right. There is stable post-procedural internal architectural distortion, trabecular thickening, and skin retraction. A stable biopsy clip and carmelo are noted at the surgical site, The breasts are unchanged in size and shape. There are no chris-areas of internal architectural distortion. There are no chris-soft tissue densities or areas of spiculation. IMPRESSION: BI-RADS Category 2- Benign Findings. There is no evidence of malignant alteration of the breasts. Routine bilateral screening mammogram recommended at its regularly scheduled annual interval. This mammogram was read with the assistance of Cristel Segundo [email or web address],an FDA approved computer aided detection system for mammography. Negative x-ray reports should not delay surgical consultation if a dominant or clinically suspicious mass is present. Not all breast cancers can be identified by mammography. Therefore, we recommend that you continue to perform regular breast self-examination and physical examination and then promptly contact your physician of any concerns or changes. Adenosis and dense breasts may obscure an underlying neoplasm. No significant changes when compared with prior studies. Assessment: BI-RADS/ACR category 2 mammogram. Benign Findings. Recommendation Routine screening mammogram of both breasts in 1 year. Electronically Signed By: Marty Gilliland MD 09/06/21 [id number]
== END ==
LOC: M WHC 08:49
PROVIDERS: ATTEND Surgery
DX: D05.11 Intraductal carcinoma in situ of right breast (principal)
CPT/HCPCS: 77066; G0279

== ENCOUNTER → 2022-09-06 | Outpatient (CLI) | payer MEDICARE, OTHER ==
[~2022-09-06] MED LIST changes: +METF-838 PO
== END ==
LOC: M WHC 08:44
PROVIDERS: ATTEND Nurse Practitioner Women's Health
DX: Z12.31 Encounter for screening mammogram for malignant neoplasm of breast (principal); D05.11 Intraductal carcinoma in situ of right breast; N63.14 Unspecified lump in the right breast, lower inner quadrant
CPT/HCPCS: 77066; G0279

== ENCOUNTER → 2022-10-02 | Outpatient (CLI) | payer MEDICARE, OTHER ==
[2022-10-02 12:53] LABS: HEMATOCRIT 35.6 % (36.0-47.0); HEMOGLOBIN 11.2 g/dl (12.0-15.5); MEAN CORPUSCULAR HEMOGLOBIN 33.4 pg (27.0-33.0); MEAN CORPUSCULAR HGB CONC 31.5 g/dl (32.0-36.5); MEAN CORPUSCULAR VOLUME 106.3 fl (80.0-96.0); PLATELET COUNT, AUTOMATED 161 10^3/uL (150-450); RED BLOOD COUNT 3.35 10^6/uL (4.00-5.40); WHITE BLOOD COUNT 9.1 10^3/uL (4.0-10.0)
[2022-10-02 13:26] LABS: ALKALINE PHOSPHATASE 59 U/L (46-116); ALT/SGPT 27 U/L (7.0-40); AST/SGOT 44 U/L (<34); BILIRUBIN,TOTAL 0.8 MG/DL (0.3-1.2); BLOOD UREA NITROGEN 16 MG/DL (9-23); CALCIUM LEVEL 8.7 MG/DL (8.3-10.6); CARBON DIOXIDE LEVEL 25 MMOL/L (20-31); CHLORIDE LEVEL 98 MMOL/L (98-107); CHOLESTEROL LEVEL 114 MG/DL (<200); CHOLESTEROL RISK RATIO 1.91 (<5); CREATININE FOR GFR 0.86 MG/DL (0.55-1.30); GLOMERULAR FILTRATION RATE > 60.0 (>39); GLUCOSE, FASTING 115 MG/DL (74-106); HDL CHOLESTEROL 59.6 MG/DL (>40); LDL CHOLESTEROL 41.2 MG/DL (<100); NON-HDL-C 54 MG/DL; POTASSIUM SERUM 3.9 MMOL/L (3.5-5.1); SODIUM LEVEL 137 MMOL/L (136-145); TOTAL PROTEIN 6.2 G/DL (5.7-8.2); TRIGLYCERIDES LEVEL 66 MG/DL (<150)
[2022-10-02 13:49] LABS: HEMOGLOBIN A1c 4.8 % (4.0-6.0)
== END ==
LOC: M WUC 09:14
PROVIDERS: ATTEND Nurse Practitioner Adult Health
DX: I48.91 Unspecified atrial fibrillation (principal); E78.2 Mixed hyperlipidemia; E74.39 Other disorders of intestinal carbohydrate absorption; Z79.899 Other long term (current) drug therapy

== ENCOUNTER → 2023-03-08 | Outpatient (CLI) | payer MEDICARE, OTHER ==
[~2023-03-08] MED LIST changes: +TRUL10IN
== END ==
LOC: M CARPUL 09:26
PROVIDERS: ATTEND Nurse Practitioner Adult Health
DX: I48.91 Unspecified atrial fibrillation (principal)

== ENCOUNTER → 2023-03-25 | Outpatient (CLI) | payer MEDICARE, OTHER ==
[2023-03-25 13:43] LABS: HEMATOCRIT 37.6 % (36.0-47.0); HEMOGLOBIN 12.2 g/dl (12.0-15.5); MEAN CORPUSCULAR HEMOGLOBIN 33.2 pg (27.0-33.0); MEAN CORPUSCULAR HGB CONC 32.4 g/dl (32.0-36.5); MEAN CORPUSCULAR VOLUME 102.5 fl (80.0-96.0); PLATELET COUNT, AUTOMATED 195 10^3/uL (150-450); RED BLOOD COUNT 3.67 10^6/uL (4.00-5.40); WHITE BLOOD COUNT 9.8 10^3/uL (4.0-10.0)
[2023-03-25 13:56] LABS: ALBUMIN 3.4 G/DL (3.2-5.2); ALKALINE PHOSPHATASE 58 U/L (46-116); ALT/SGPT 29 U/L (7.0-40); AST/SGOT 61 U/L (<34); BILIRUBIN,TOTAL 0.6 MG/DL (0.3-1.2); BLOOD UREA NITROGEN 11 MG/DL (9-23); CARBON DIOXIDE LEVEL 25 MMOL/L (20-31); CHLORIDE LEVEL 102 MMOL/L (98-107); CREATININE FOR GFR 0.71 MG/DL (0.55-1.30); GLOMERULAR FILTRATION RATE > 60.0 (>39); GLUCOSE, FASTING 117 MG/DL (74-106); POTASSIUM SERUM 3.6 MMOL/L (3.5-5.1); SODIUM LEVEL 136 MMOL/L (136-145); TOTAL PROTEIN 6.8 G/DL (5.7-8.2)
[2023-03-25 14:01] LABS: THYROID STIMULATING HORMONE 1.903 uIU/ML (0.55-4.78)
[2023-03-25 14:06] LABS: HEMOGLOBIN A1c 4.9 % (4.0-6.0)
== END ==
LOC: M WUC 09:25
PROVIDERS: ATTEND Nurse Practitioner Adult Health
DX: I48.91 Unspecified atrial fibrillation (principal); E11.9 Type 2 diabetes mellitus without complications

== ENCOUNTER → 2023-09-10 | Outpatient (CLI) | payer MEDICARE, OTHER | LOC: M WHC 10:04 | PROVIDERS: ATTEND Nurse Practitioner Women's Health | DX: D05.11 Intraductal carcinoma in situ of right breast (principal) | CPT/HCPCS: 77066; G0279 ==

== ENCOUNTER → 2023-11-05 | Outpatient (CLI) | payer MEDICARE, OTHER ==
[2023-11-05 18:36] LABS: HEMOGLOBIN 11.9 g/dl (12.0-15.5); MEAN CORPUSCULAR HEMOGLOBIN 33.3 pg (27.0-33.0); MEAN CORPUSCULAR HGB CONC 32.2 g/dl (32.0-36.5); MEAN CORPUSCULAR VOLUME 103.6 fl (80.0-96.0); PLATELET COUNT, AUTOMATED 253 10^3/uL (150-450); RED BLOOD COUNT 3.57 10^6/uL (4.00-5.40); WHITE BLOOD COUNT 10.7 10^3/uL (4.0-10.0)
[2023-11-05 19:03] LABS: THYROID STIMULATING HORMONE 1.637 uIU/ML (0.55-4.78)
[2023-11-05 19:04] LABS: TOTAL 25(OH) VITAMIN D 67.1 NG/ML (20.0-100.0)
[2023-11-05 19:05] LABS: ALBUMIN 3.4 G/DL (3.2-5.2); ALKALINE PHOSPHATASE 69 U/L (46-116); ALT/SGPT 39 U/L (7.0-40); AST/SGOT 45 U/L (<34); BILIRUBIN,TOTAL 0.6 MG/DL (0.3-1.2); BLOOD UREA NITROGEN 12 MG/DL (9-23); CALCIUM LEVEL 8.9 MG/DL (8.3-10.6); CARBON DIOXIDE LEVEL 30 MMOL/L (20-31); CHLORIDE LEVEL 103 MMOL/L (98-107); CHOLESTEROL LEVEL 146 MG/DL (<200); CHOLESTEROL RISK RATIO 2.63 (<5); CREATININE FOR GFR 0.65 MG/DL (0.55-1.30); GLOMERULAR FILTRATION RATE > 60.0 (>39); GLUCOSE, FASTING 84 MG/DL (74-106); HDL CHOLESTEROL 55.4 MG/DL (>40); NON-HDL-C 90.6 MG/DL; POTASSIUM SERUM 4.3 MMOL/L (3.5-5.1); SODIUM LEVEL 137 MMOL/L (136-145); TRIGLYCERIDES LEVEL 88 MG/DL (<150)
== END ==
LOC: M WUC 11:24
PROVIDERS: ATTEND Nurse Practitioner Adult Health
DX: I48.91 Unspecified atrial fibrillation (principal); E78.2 Mixed hyperlipidemia; E11.9 Type 2 diabetes mellitus without complications; Z79.899 Other long term (current) drug therapy

== ENCOUNTER → 2024-05-27 | Outpatient (REF) | payer MEDICARE, OTHER | LOC: M SFHCDERM 17:38 | PROVIDERS: ATTEND Physician Assistant | DX: C44.729 Squamous cell carcinoma of skin of left lower limb, including hip (principal) ==

== ENCOUNTER → 2024-06-02 | Outpatient (CLI) | payer MEDICARE, OTHER ==
[~2024-06-02] MED LIST changes: +DULA3PEN SQ; +potassium PO
[2024-06-02 10:23] LABS: HEMATOCRIT 36.1 % (36.0-47.0); HEMOGLOBIN 11.7 g/dl (12.0-15.5); MEAN CORPUSCULAR HEMOGLOBIN 33.1 pg (27.0-33.0); MEAN CORPUSCULAR HGB CONC 32.4 g/dl (32.0-36.5); PLATELET COUNT, AUTOMATED 188 10^3/uL (150-450); RED BLOOD COUNT 3.54 10^6/uL (4.00-5.40); WHITE BLOOD COUNT 8.3 10^3/uL (4.0-10.0)
[2024-06-02 10:31] LABS: ALBUMIN 3.2 G/DL (3.2-5.2); ALKALINE PHOSPHATASE 61 U/L (46-116); ALT/SGPT 55 U/L (7.0-40); AST/SGOT 60 U/L (<34); BILIRUBIN,TOTAL 0.7 MG/DL (0.3-1.2); BLOOD UREA NITROGEN 11 MG/DL (9-23); CALCIUM LEVEL 9.1 MG/DL (8.3-10.6); CARBON DIOXIDE LEVEL 29 MMOL/L (20-31); CHLORIDE LEVEL 102 MMOL/L (98-107); CHOLESTEROL LEVEL 145 MG/DL (<200); CHOLESTEROL RISK RATIO 2.97 (<5); GLOMERULAR FILTRATION RATE > 60.0 (>39); GLUCOSE, FASTING 133 MG/DL (74-106); HDL CHOLESTEROL 48.8 MG/DL (>40); LDL CHOLESTEROL 65.4 MG/DL (<100); NON-HDL-C 96.2 MG/DL; POTASSIUM SERUM 3.4 MMOL/L (3.5-5.1); SODIUM LEVEL 138 MMOL/L (136-145); TOTAL PROTEIN 6.9 G/DL (5.7-8.2); TRIGLYCERIDES LEVEL 154 MG/DL (<150)
[2024-06-02 10:35] LABS: FERRITIN 74.5 NG/ML (7.3-270.7); THYROID STIMULATING HORMONE 1.977 uIU/ML (0.55-4.78)
== END ==
LOC: M WUC 08:17
PROVIDERS: ATTEND Nurse Practitioner Adult Health
DX: I48.91 Unspecified atrial fibrillation (principal); E78.2 Mixed hyperlipidemia; E55.9 Vitamin D deficiency, unspecified; E11.9 Type 2 diabetes mellitus without complications

== ENCOUNTER → 2024-09-14 | Outpatient (CLI) | payer MEDICARE, OTHER | LOC: M WHC 13:07 | PROVIDERS: ATTEND Internal Medicine Medical Oncology | DX: Z12.31 Encounter for screening mammogram for malignant neoplasm of breast (principal); Z85.3 Personal history of malignant neoplasm of breast | CPT/HCPCS: 77066; G0279 ==

== ENCOUNTER → 2025-02-12 | Outpatient (CLI) | payer MEDICARE, OTHER ==
[2025-02-12 13:17] LABS: HEMATOCRIT 37.3 % (36.0-47.0); HEMOGLOBIN 11.8 g/dl (12.0-15.5); MEAN CORPUSCULAR HEMOGLOBIN 31.6 pg (27.0-33.0); MEAN CORPUSCULAR HGB CONC 31.6 g/dl (32.0-36.5); PLATELET COUNT, AUTOMATED 221 10^3/uL (150-450); RED BLOOD COUNT 3.73 10^6/uL (4.00-5.40); WHITE BLOOD COUNT 9.1 10^3/uL (4.0-10.0)
[2025-02-12 13:21] LABS: FERRITIN 19.9 NG/ML (7.3-270.7)
[2025-02-12 13:28] LABS: ALBUMIN 3.5 G/DL (3.2-5.2); ALKALINE PHOSPHATASE 53 U/L (35-104); ALT/SGPT 45 U/L (7.0-40); AST/SGOT 73 U/L (<34); BILIRUBIN,TOTAL 0.4 MG/DL (0.3-1.2); BLOOD UREA NITROGEN 11 MG/DL (9-23); CALCIUM LEVEL 9.5 MG/DL (8.3-10.6); CARBON DIOXIDE LEVEL 29 MMOL/L (20-31); CHLORIDE LEVEL 101 MMOL/L (98-107); CHOLESTEROL LEVEL 176 MG/DL (<200); CHOLESTEROL RISK RATIO 2.48 (<5); CREATININE FOR GFR 0.68 MG/DL (0.55-1.30); GLOMERULAR FILTRATION RATE > 90.0 (>39); GLUCOSE, FASTING 85 MG/DL (74-106); HDL CHOLESTEROL 70.7 MG/DL (>40); LDL CHOLESTEROL 80.9 MG/DL (<100); NON-HDL-C 105.3 MG/DL; POTASSIUM SERUM 3.8 MMOL/L (3.5-5.1); SODIUM LEVEL 141 MMOL/L (136-145); TOTAL PROTEIN 7.3 G/DL (5.7-8.2); TRIGLYCERIDES LEVEL 122 MG/DL (<150)
[2025-02-12 14:00] LABS: HEMOGLOBIN A1c 5.2 % (4.0-6.0)
== END ==
LOC: M WUC 09:46
PROVIDERS: ATTEND Nurse Practitioner Adult Health
DX: E11.9 Type 2 diabetes mellitus without complications (principal); I48.91 Unspecified atrial fibrillation; E55.9 Vitamin D deficiency, unspecified; E78.2 Mixed hyperlipidemia

== ENCOUNTER → 2025-09-20 | Outpatient (CLI) | payer MEDICARE, OTHER ==
[~2025-09-20] MED LIST changes: +PRAV10TA PO; -PRAV10TA4 PO
== END ==
LOC: M WHC 11:03
DX: C50.911 Malignant neoplasm of unspecified site of right female breast (principal); R92.313 Mammographic fatty tissue density, bilateral breasts
CPT/HCPCS: 77066; G0279